=== PATIENT | female | born 1950 | race Caucasian/White ===

== ENCOUNTER 2024-08-28 05:25 | Emergency (ER) | payer OTHER, BC ==
[2024-08-28 05:32] VITALS: RESP 18; TEMP 98; BMI 25.3
[2024-08-28 06:43] LABS: HEMATOCRIT 33.7 % (32.4-45.2); HEMOGLOBIN 11.3 GM/dL (10.7-15.3); MCH 30.7 pg (25.7-33.7); MCHC 33.4 g/dl (32.0-36.0); MEAN CELL VOLUME 91.8 fl (80-96); MEAN PLT VOLUME 8.1 fl (7.5-11.1); PLATELET COUNT 190 10^3/uL (134-434); RBC 3.67 M/mm3 (3.60-5.2); WHITE BLOOD COUNT 8.7 K/mm3 (4.0-10.0)
[2024-08-28 07:01] LABS: CHLORIDE 103 mmol/L (98-107); SODIUM 138 mmol/L (136-145)
[2024-08-28 07:03] LABS: CALCIUM 7.9 mg/dL (8.5-10.1)
[2024-08-28 07:04] LABS: BLOOD UREA NITROGEN 28.6 mg/dL (7-18); CO2 25 mmol/L (21-32); GLUCOSE,RANDOM 139 mg/dL (74-106); MAGNESIUM 1.7 mg/dL (1.8-2.4)
[2024-08-28 07:07] LABS: CREATININE 1.5 mg/dL (0.55-1.3); SGOT/AST 32 U/L (15-37); SGPT/ALT 20 U/L (13-61)
[2024-08-28 07:10] LABS: ALK PHOS 69 U/L (45-117)
[2024-08-28 08:06] LABS: ANION GAP 11 mmol/L (4-13); POTASSIUM 2.9 mmol/L (3.5-5.1)
[2024-08-28 08:36] LABS: BILIRUBIN,TOTAL 0.6 mg/dL (0.2-1)
[2024-08-28] MEDS ORDERED: ASPIRIN 81 MG CHEWABLE TABLETS ONE (08:37)
[2024-08-28] MEDS ORDERED: POTASSIUM CHLORIDE ORAL LIQUID 20 MEQ/15 ML PO ONE (08:41)
[2024-08-28] MEDS ORDERED: HEPARIN - 25,000 UNIT in SODIUM CHLORIDE 495 ML IV SCH (08:45)
[2024-08-28 08:50] LABS: ANISOCYTOSIS 0; MACROCYTOSIS 0; OVALOCYTE 1+
[2024-08-28] MEDS: ASPIRIN 81 MG CHEWABLE TABLETS PO ONE (09:01)
[2024-08-28] MEDS ORDERED: HEPARIN INFUSION - 25,000 UNITS/500 ML INFUS.BAG IVPB ONE (09:07)
[2024-08-28] MEDS ORDERED: HEPARIN NA (PORCINE) 5,000 UNITS/ML 1ML VIAL ONE (09:08)
[2024-08-28] MEDS ORDERED: CLOPIDOGREL BISULFATE 300 MG TABLET ONE (09:08)
[2024-08-28] MEDS: HEPARIN NA (PORCINE) 5,000 UNITS/ML 1ML VIAL IVPUSH ONE (09:32)
[2024-08-28] MEDS: CLOPIDOGREL BISULFATE 300 MG TABLET PO ONE (09:32)
[2024-08-28 09:50] VITALS: BP 95/61; PULSE 100
[2024-08-28] MEDS: HEPARIN INFUSION - 25,000 UNITS/500 ML INFUS.BAG IVPB SCH (09:52)
== END 2024-08-28 09:30 | disposition short-term general hospital (02) ==
LOC: JER 05:25
PROC: 3E033GC Introduction of Other Therapeutic Substance into Peripheral Vein, Percutaneous Approach (ICD-10-PCS; principal; 2024-08-28)
DX: I21.3 ST elevation (STEMI) myocardial infarction of unspecified site (principal); R79.89 Other specified abnormal findings of blood chemistry; R41.82 Altered mental status, unspecified; R42 Dizziness and giddiness; R11.10 Vomiting, unspecified; R00.0 Tachycardia, unspecified; R51.9 Headache, unspecified; I10 Essential (primary) hypertension
CPT/HCPCS: 36415; 71046-TC-FY; 80053; 82550; 82553; 82962; 83690; 83735; 84443; 84484; 85025; 93005; 93010; 99285-25; J1644

== ENCOUNTER 2025-06-16 16:18 | Emergency (ER) | payer OTHER, BC ==
[2025-06-16 16:40] VITALS: RESP 18; BMI 26.9
[2025-06-16 17:19] LABS: ABSOLUTE IMMATURE GRANULOCYTES 0.02 x10^3/uL (0.0-0.031); BASOPHILS # 0.02 x10^3/uL (0.01-0.08); EOSINOPHIL % 2.0 % (0.7-5.8); EOSINOPHILS # 0.15 x10^3/uL (0.04-0.36); MCHC 32.1 g/dl (32.2-35.5); MEAN CELL VOLUME 92.7 fl (79.4-94.8); MEAN PLT VOLUME 10.9 fl (9.4-12.3); MONOCYTE # 0.74 x10^3/uL (0.24-0.86); MONOCYTE % 9.7 % (4.7-12.5); RDW 13.3 % (12.4-16.6)
[2025-06-16 17:31] LABS: ALK PHOS 75 U/L (45-117); CO2 27 mmol/L (21-32); CREATININE 1.8 mg/dl (0.6-1.3); GLUCOSE,RANDOM 160 mg/dl (74-106); SGOT/AST 23 U/L (15-37); SGPT/ALT 24 U/L (7-52); TOT PROT 6.6 g/dl (6.4-8.2)
[2025-06-16 17:42] VITALS: BP 101/59; PULSE 57; TEMP 97.9
[2025-06-19 14:25] LABS: HIV INTERPRETATION NEGATIVE (NEGATIVE)
[2025-06-19 21:52] LABS: HCV DIAGNOSTIC IN-HOUSE W/RFLX NON-REACTIVE (NONREACTIVE)
== END 2025-06-16 18:45 | disposition home or self-care (01) ==
LOC: FER 16:18
DX: R41.0 Disorientation, unspecified (principal); R26.81 Unsteadiness on feet; F41.9 Anxiety disorder, unspecified
CPT/HCPCS: 36415; 70450-TC; 80053; 83735; 85025; 86803; 87389; 93005; 99285-25